=== PATIENT | male | born 1965 | race Caucasian/White ===

== ENCOUNTER 2024-08-15 09:27 | Outpatient (AMB) | payer OTHER, SELFPAY ==
--- OUTSIDE RECORDS SUMMARY | 2024-08-13 08:00 | XMS_ITS | Encounter Summary ---
Author Organization [facility] Address [address] [place] [address] Care Team Providers Care Sales Officer Name Role Phone Lenore Gordillo Primary Care Provider [phone] Reason for Visit * Consultation (Routine) - Authorized Specialty Diagnoses / Procedures Referred By Mathew t Referred To Contact Physical Therapy Diagnoses Acute left-sided low back pain with left-sided sciatica Lise Sorensen, KELLE [address] [place], [place] Phone: tel: fax: [facility] [address] [address] Phone: tel: fax: Referral ID Status Reason Start Date Expiration Date Visits Requested Visits Authorized [id number] Authorized Specialty Services Required 06/26/2024 06/26/2025 60 60 Encounter Details Date Type Department Care Team (Late st Contact Info) Description 08/13/2024 8:00 AM EDT Treatment [place] [facility] [place] [address] [place] [address] Dez Castanon, COKE PRODUCTION HEATER Acute left-sided low back pain with left-sided sciatica (Primary Dx) Social History Tobacco Use Types Packs/Day Years Used Date Smoking Tobacco: Never Smokeless Tobacco: Never Alcohol Use Standard Drinks/Week Comments Not Currently 0 (1 standard drink = 0.6 oz pur e alcohol) Housing Instability Answer Date Recorde d Are you worried that in the next 2 months you may not have stable housing? No 05/17/2024 Food Access & Nutrition Answer Date Rec orded Do you have access to a vari ety of food including fruits and vegetables? Yes 05/17/2024 Access to Healthcare Answer Date Record ed Within the last 3 months, ho w many times did you visit the emergency department for your medical care? 0 05/17/2024 Health Literacy Answer Date Recorded How often do you need to hav e someone help you when you read instructions, pamphlets, or other written material from your doctor or pharmacy? Never 05/17/2024 Caregiver: How often do you need to have someone help you when you read instructions, pamphlets, or other written material from your doctor or pharmacy? Not on file 05/17/2024 Financial Risk Answer Date Recorded How hard is it for you to pa y for the very basics like food, housing, medical care, and air conditioning / heating? Somewhat hard 05/17/2024 Transportation Answer Date Recorded Has the lack of transportati on kept you from meetings, work, or from getting things needed for daily living? No Has the lack of transportati on kept you from medical appointments or from getting medications? No 05/17/2024 Social Isolation Answer Date Recorded How often do you feel lonely or isolated from th ose around you? Rarely 05/17/2024 Food Risk Answer Date Recorded Within the past 12 months we worried whether our food would run out before we got money to buy more. Never true 05/17/2024 Within the past 12 months th e food we bought just didn't last and we didn't have money to get more. Never true 05/17/2024 Dependent Care Answer Date Recorded Do you need help finding or paying for care for your loved ones. For example, child day care provider or elderly care for an older adult? No 05/17/2024 Education Answer Date Recorded Do you think completing more education or training, like finishing a GED, going to college, or learning a trade, would be helpful for you? N/A 05/17/2024 Employment and Income Answer Date Recor ded During the last four weeks, have you been actively looking for work? No 05/17/2024 Living Situation Answer Date Recorded What is your living situation? 0 05/17/2024 Sex and Gender Information Value Date Recorded Sex Assigned at Male 07/31/2024 8:50 AM EDT Legal Sex Male 3:08 PM EDT Gender Identity Male 07/31/2024 8:50 AM EDT Sexual Orientation Straight 07/31/2024 8: 50 AM EDT documented as of this encounter Progress Notes * Dez Castanon PTA - 08/13/2024 8:00 AM EDT [facility] - Outpatient PHYSICAL THERAPY DAILY TREATMENT NOTE - OP Date: 08/13/2024 Visit Number: 3 Patient Name: Chapin Freitas : 1965 Age: 58 y.o. Gender: male Diagnosis: ICD-10-CM ICD-9-CM 1. Acute left-sided low back pain with left-sided sciatica M54.42 724.2 724.3 Date of Onset/Surgery: 07/26/2024 Referring Provider: Lise Sorensen NP Insurance: Payor: [employer] / Plan: [employer] / Product Type: *No Product type* / Patient Identified by: Dez Castanon PTA Language: Citizen Of [place] Medications: Current Outpatient Medications on File Prior to Visit Medication Sig Dispense Refill acetaminophen (TYLENOL) 500 mg tablet TAKE 2 TABLETS BY MOUTH 4 TIMES A DAY X5 DAYS NEEDED FOR PAIN amLODIPine (NORVASC) 2.5 mg tablet Take 1 tablet (2.5 mg total) by mouth 1 (one) time each day. 90 each 3 atorvastatin (LIPITOR) 20 mg tablet TAKE 1 TABLET BY MOUTH EVERY DAY 90 tablet 1 cyclobenzaprine (FLEXERIL) 10 mg tablet TAKE 1 TABLET BY MOUTH 3 TIMES A DAY,X7 DAYS (MAY CAUSE DROWSINESS. DO NOT TAKE IF DRIVING) (Patient not taking: Reported on 08/03/2024) dexAMETHasone (DECADRON) 4 mg tablet Take 1 tablet (4 mg total) by mouth every 8 (eight) hours for 4 days. 12 each 0 fluticasone propionate (FLONASE) 50 mcg/actuation nasal spray Administer 2 sprays into each nostril1 (one) time each day. Shake gently. Before first use, prime pump. After use, clean tip and replacecap. gabapentin (NEURONTIN) 100 mg capsule TAKE 1 CAPSULE BY MOUTH 3 TIMES A DAY,X14 DAYS lamoTRIgine (LaMICtal) 100 mg tablet Take 1 tablet (100 mg total) by mouth 1 (one) time each day. lidocaine (LIDODERM) 5 % patch APPLY 1 PATCH TOPICALLY DAILY X7 DAYS NEEDED FOR PAIN (MILD) REMOVE AFTER 12 HOURS lisinopriL (PRINIVIL,ZESTRIL) 20 mg tablet TAKE 1 TABLET BY MOUTH EVERY DAY 90 tablet 1 loperamide (IMODIUM) 2 mg capsule Take 1 capsule (2 mg total) by mouth 4 (four) times a day if needed for diarrhea. (Patient not taking: Reported on 08/03/2024) meloxicam (MOBIC) 15 mg tablet Take 1 tablet (15 mg total) by mouth 1 (one) time each day. 30 each 2 metoprolol succinate (TOPROL-XL) 100 mg 24 hr tablet TAKE 1 TABLET BY MOUTH EVERY DAY 90 tablet 1 naproxen (NAPROSYN) 500 mg tablet Take 1 tablet (500 mg total) by mouth 2 (two) times a day with meals. omeprazole OTC (PriLOSEC OTC) 20 mg EC tablet Take 1 tablet (20 mg total) by mouth 1 (one) time each day for 10 doses. Do not crush, chew, or split. 10 tablet 0 semaglutide (Wegovy) 1 mg/0.5 mL injection pen Inject 1 mg under the skin every 7 (seven) days. (Patient not taking: Reported on 08/03/2024) 4 mL 0 sertraline (ZOLOFT) 100 mg tablet Take 1 tablet (100 mg total) by mouth 1 (one) time each day. sildenafiL (VIAGRA) 50 mg tablet Take 1 tablet by mouth 30 minutes prior to anticipated sexual activity. tiZANidine (ZANAFLEX) 2 mg tablet TAKE 2 TABS BY MOUTH 3 TIMES A DAY NEEDED FOR SPASM. NOT TO EXCEED 3 DOSES/DAY. (Patient not taking: Reported on 08/03/2024) traMADoL (ULTRAM) 50 mg tablet Take 1 tablet (50 mg total) by mouth 1 (one) time each day if neededfor severe pain. Max Daily Amount: 50 mg 15 tablet 0 [DISCONTINUED] famotidine (PEPCID) 20 mg tablet Take 1 Tablet by mouth 2 times daily as needed for Heartburn. - Oral No current facility-administered medications on file prior to visit. Allergies: has No Known Allergies. Precautions: HTN Fall risk: No SUBJECTIVE Subjective Report:pt reports his hamstring is pretty tight Chart Reviewed: Yes Pain Upper (L) LE OBJECTIVE TREATMENT INTERVENTION: Nu step x 5 min Standing hip flexor and hamstring stretch 2 x 20 sec hold (B) Heel raises x 20 Standing hip ext/abd/marching 2 x 10 each (B) with green tband Bridging 2 x 10 H/L hip add x 20 ball squeeze (L) LE long axis traction x 5 m9n ASSESSMENT/Response to Treatment Good add to HEP next visit Patient Education: Education provided: Yes Education Provided To: Patient utilizing Explanation mode(s) of education Response to Education: Verbal Understanding PLAN POC Development/Review: No Change in the Plan of Care; Participants: Patient Total Treatment Time: 30 Modalities: Therapeutic procedures: Documentation completed by Dez Castanon PTA documented in this encounter Plan of Treatment Upcoming Encounters Date Type Department Care Team (Late st Contact Info) Description 08/16/2024 9:30 AM EDT Treatment [address] [phone] Chriss Simmons, COKE PRODUCTION HEATER 08/20/2024 9:00 AM EDT Treatment [address] [phone] Chriss Simmons, COKE PRODUCTION HEATER 08/22/2024 9:00 AM EDT Treatment [facility] [address] [phone] Dez Castanon PTA 08/27/2024 9:00 AM EDT Treatment [address] [phone] Chriss Simmons, COKE PRODUCTION HEATER 08/29/2024 9:00 AM EDT Treatment [facility] [address] [phone] Nia Thomas, PT 09/03/2024 9:00 AM EDT Treatment [facility] [address] [phone] Nia Thomas, PT 09/13/2024 8:45 AM EDT Office Visit Adult [address] [phone] Marilyn Bishop MD [address] [place] [address] 10/29/2024 2:45 PM EDT Telemedicine Bariatric Surgery [facility] [address] [phone] Ilan Rivas MD [address] [address] 10/30/2024 4:00 PM EDT Office Visit [address] [phone] Lenore Gordillo PA [address] [place] [address] documented as of this encounter Visit Diagnoses Diagnosis Acute left-sided low back pain with left-sided sciatica- Primary documented in this encounter Additional Health Concerns Assessment Noted Time PHQ-9 Depression Total Score: 0 05/18/19 8:24 AM EDT documented as of this encounter Care Teams Sales Officer Relationship Specialty Start Date End Date Lenore Gordillo PA [address] [place] [id number] PCP - General Internal Medicine 07/31/24 documented as of this encounter
--- NOTE | 2024-08-15 09:28 | A.OFFVIS_ITS ---
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 Patient reports he has experienced this pain in the past however current episode started in May after he was hiking and slipped. Did not fall, but tweaked his back attempting to regain his balance and prevent falling. Endorses left lower back pain with some radiation into the buttock and thigh. Initially after the injury when pain was most severe there was radiation down the left leg into the foot. Denies numbness, weakness, tingling of the left lower extremity. Denies red flag symptoms including loss of bowel, bladder or saddle anesthesia. He has attempted physical therapy and chiropractic manipulation with minimal improvement. Has been doing physical therapy for several weeks and is still continuing it but pain persists. He has temporary improvement with steroid Dosepak, nonsteroidal anti- inflammatory medications. No improvement with oxycodone. Previously he was prescribed gabapentin twice and noticed some relief with 200 mg dose. He had a recent MRI at [facility], results reviewed on his patient portal. Medical record record release was signed so these could be obtained for his chart. In terms of muscle damage condition is described as pinching, cramping, crushing, tight, squeezing, tearing. Pain is negatively impacting patient's enjoyment of life, general activity, normal sleep, ability to perform activities of daily living, ability to function normally. Pain today is rated as a 5/10, constant. Denies implantable device, pacemaker or defibrillator Denies current use of nicotine, tobacco, alcohol or substances. Does endorse cannabis use Denies current use of aspirin or anticoagulants [facility] Medical History (Updated 08/15/24 @ 13:06 by Gloria Lopez, AUXILIARY POWER EQUIPMENT OPERATOR, CLEANING ATTENDANT) Osteochondritis dissecans Passage of loose stools COVID-19 Burping Dyspnea Right rotator cuff tendinitis DANISHA (obstructive sleep apnea) Right inguinal hernia Microscopic hematuria Dyslipidemia Elevated fasting glucose Vitamin D deficiency Hyperlipemia Anxiety Depression HTN (hypertension) Syncope Surgical History (Updated 08/15/24 @ 09:51 by Enedelia Hillman MA) Hx of wisdom tooth extraction History of tonsillectomy S/P hernia repair History of colonoscopy Review of Systems Const All systems reviewed & are unremarkable except as noted in HPI and below Physical Exam Vital Signs: Last Vital Signs Pulse 73 08/15/24 09:29 Resp 16 08/15/24 09:29 BP 159/90 H 08/15/24 09:29 Pulse Ox 96 08/15/24 09:29 Oxygen Delivery Method Room Air 08/15/24 09:29 BMI result Body Mass Index 41.5 General: awake, alert, oriented. Answers questions appropriately. Fully engaged in examination. Skin: warm, dry, intact HEENT: Normocephalic. Hearing intact. Cardiac: External chest normal in appearance. Respiratory: No cough, audible wheezing or stridor. Abdomen: without gross distension. MS: No obvious swelling or deformities. Able to stand on bilateral tiptoes and bilateral heels.? Able to transition from sit to stand unassisted. Ambulates with bilaterally normal heel strike and toe off SLR negative bilaterally Minimally tender over midline lumbar vertebrae and lower paraspinal muscles Nontender over bilateral PSIS Bilateral lower extremity strength 5/5 Decreased lumbar range of motion Neurological: Oriented to person, place, time and situation. Thought process intact. No gait abnormalities appreciated. Psychiatric: Appropriate mood and affect. Good judgment and insight. Assessment & Plan Assessment & Plan (1) Degenerative disc disease, lumbar: Code(s): M51.369 - Other intervertebral disc degeneration, lumbar region without mention of lumbar back pain or lower extremity pain Category: Medical (2) Chronic back pain: Code(s): M54.9 - Dorsalgia, unspecified; G89.29 - Other chronic pain Category: Medical (3) Lumbar spondylosis: Code(s): M47.816 - Spondylosis without myelopathy or radiculopathy, lumbar region Category: Medical (4) Bulging lumbar disc: Code(s): M51.369 - Other intervertebral disc degeneration, lumbar region without mention of lumbar back pain or lower extremity pain Category: Medical Plan Chapin is a very pleasant 50-year-old male who presented to the office today for evaluation and management of his chronic lower back pain. MRI was performed at [facility], medical record release signed. Results will be scanned into the chart once available. Will send prescription for gabapentin 300 mg p.o. 3 times daily. Patient was advised on cautions for use. May cause drowsiness, no driving while taking this medication. Do not take with any other TRAFFIC WAREHOUSE SUPERVISOR depressants. Patient has exhausted conservative therapy including PT, NSAIDs, [id number] medications, prescription medications, chiropractor all without improvement of his symptoms. Will schedule for lumbar epidural steroid injection after review of MRI results to confirm level. All questions and concerns answered, patient agrees with plan. Follow-up after injection, sooner if needed Medications: New gabapentin 300 mg PO TID 90 caps 1RF Coding Level of Care Code New Pt Level 4 (00714) Complex EM visit Add On G2211 Diagnoses Degenerative disc disease, lumbar M51.369 Chronic back pain M54.9; G89.29 Lumbar spondylosis M47.816 Bulging lumbar disc M51.369
[2024-08-15 09:29] VITALS: BP 159/90; PULSE 73; RESP 16; O2SAT 96; BMI 41.5
== END 2024-08-15 10:07 | disposition home or self-care (01) ==
LOC: HO.PMC 09:27
PROVIDERS: PCP Internal Medicine; Referring Provider Physician Assistant; Visit Provider Registered Nurse Emergency
DX: M51.369 Other intervertebral disc degeneration, lumbar region without mention of lumbar back pain or lower extremity pain (principal); M54.9 Dorsalgia, unspecified; G89.29 Other chronic pain; M47.816 Spondylosis without myelopathy or radiculopathy, lumbar region
CPT/HCPCS: 99204; G2211

== ENCOUNTER 2024-08-24 14:52 | Outpatient (AMB) | payer OTHER, SELFPAY ==
[2024-08-24 14:58] VITALS: BP 168/88; PULSE 74; RESP 16; O2SAT 98; BMI 41.5
--- NOTE | 2024-08-24 14:58 | A.OFFVIS_ITS ---
Vital Signs 08/24/24 14:58 Height 5 ft 8 in Weight 273 lb BMI 41.5 BP 168/88 H Blood Pressure Location Lt brachial Position Sitting Respiration 16 Pulse 74 Pulse Source Pulse Oximeter Pulse Oximetry (%) 98 Oxygen Delivery Method Room Air Intake Visit Reasons: Follow Up After ED Visit Chemical Lab Technician Required: No Accompanied by: Daughter Allergies No Known Allergies Allergy (Verified 08/24/24 15:04) HPI Comments Details: The patient is a 58-year-old male presenting with acute pain due to disc pathology. The pain began on Tuesday when he found a comfortable position in bed, but upon waking, experienced severe spasms on his side. Gabapentin was ineffective, leading to an ER visit where fentanyl provided short-term relief. On Tuesday, the pain persisted, and by , another ER visit was required, with fentanyl and Percocet providing temporary relief. The patient reports continuous pain since Tuesday, with no comfortable position and difficulty in daily activities. Was discharge from the ER with a short prescription of Percocet 5 mg. States 1 Percocet did not relieve his pain, if he took 2 Percocet he was able to get a couple hours of relief. He does not have any oral pain medication to take until his surgery in 4 days. He is scheduled for minimally invasive day surgery to address the disc issue next Tuesday. Denies red flag symptoms including new loss of bowel, bladder or saddle anesthesia. - Onset: Pain began on Tuesday after waking from a comfortable position. - Quality: Severe spasms on the side. - Location: Side of the body. - Exacerbating factors: Movement and inability to find a comfortable position. - Relieving factors: Fentanyl and Percocet provided temporary relief. - Interference: Difficulty standing, lying down, and using the bathroom. - Affect: Pain is causing significant distress and inability to perform daily activities. - Analgesia: Gabapentin was ineffective; fentanyl and Percocet provided temporary relief. - Adverse Effects: None reported. - Activities of Daily Living: Pain interferes with standing, lying down, and using the bathroom. - Aberrant Drug Related Behaviors: None reported. [facility] Medical History (Updated 08/15/24 @ 13:06 by Gloria Lopez, CUTTING MACHINE TENDER HELPER, EXPERIMENTAL MACHINING LAB MANAGER) Osteochondritis dissecans Passage of loose stools COVID-19 Burping Dyspnea Right rotator cuff tendinitis DANISHA (obstructive sleep apnea) Right inguinal hernia Microscopic hematuria Dyslipidemia Elevated fasting glucose Vitamin D deficiency Hyperlipemia Anxiety Depression HTN (hypertension) Syncope Surgical History (Updated 08/15/24 @ 09:51 by Enedelia Hillman MA) Hx of wisdom tooth extraction History of tonsillectomy S/P hernia repair History of colonoscopy Review of Systems Const Details: - Musculoskeletal: Reports severe spasms and inability to find a comfortable position. - Neurological: Denies any neurological deficits. - Gastrointestinal: Reports difficulty using the bathroom due to pain. Physical Exam Vital Signs: Last Vital Signs Pulse 74 08/24/24 14:58 Resp 16 08/24/24 14:58 BP 168/88 H 08/24/24 14:58 Pulse Ox 98 08/24/24 14:58 Oxygen Delivery Method Room Air 08/24/24 14:58 BMI result Body Mass Index 41.5 Standing up in the room on arrival for the visit. Patient appears uncomfortable. Leaning on the counter, unable to sit for exam due to worsening pain. General: awake, alert, oriented. Answers questions appropriately. Skin: warm, dry, intact HEENT: Normocephalic. Hearing intact. Cardiac: External chest normal in appearance. Respiratory: No cough, audible wheezing or stridor. Abdomen: without gross distension. MS: No obvious swelling or deformities. Neurological: Oriented to person, place, time and situation. Thought process intact. Antalgic gait Psychiatric: Appropriate mood and affect. Good judgment and insight. Assessment & Plan Assessment & Plan (1) Degenerative disc disease, lumbar: Code(s): M51.369 - Other intervertebral disc degeneration, lumbar region without mention of lumbar back pain or lower extremity pain Category: Medical (2) Chronic back pain: Code(s): M54.9 - Dorsalgia, unspecified; G89.29 - Other chronic pain Category: Medical (3) Lumbar spondylosis: Code(s): M47.816 - Spondylosis without myelopathy or radiculopathy, lumbar region Category: Medical (4) Bulging lumbar disc: Code(s): M51.369 - Other intervertebral disc degeneration, lumbar region without mention of lumbar back pain or lower extremity pain Category: Medical Plan The patient is advised to contact the neurosurgeon regarding the worsening pain. Our office focuses on interventional pain management and do not prescribe opioid medications. Given patient's obvious significant discomfort, two recent emergency room visits and pending surgery in 4 days patient was given a very short prescription for oxycodone 10 mg p.o. q.8 hours p.r.n. to manage pain over the weekend until the scheduled surgery on Tuesday. The patient is scheduled for minimally invasive day surgery to address the disc issue, which was recommended after a flare-up and MRI review by the neurosurgeon's partner. Patient was advised that this is a one time prescription to prevent unnecessary suffering over the weekend while he awaits surgery on Tuesday. This medication will not be refilled. He verbalizes understanding. He was advised to contact his neurosurgeon if the pain worsens. Patient was advised of red flag symptoms and when he should seek treatment in the emergency room. Patient was informed and verbally consented to the use of an ambient scribe for clinic note documentation during this visit. Medications: New oxycodone May cause drowsiness. No driving while taking this medication. Do not take with alcohol or other ELECTRONICS INSPECTOR depressants. Partial Fill upon patient request. 10 mg PO Q8H PRN 14 tabs 0RF pain 4 days Patient Instructions: - Contact your neurosurgeon regarding worsening pain. - Take the prescribed oxycodone as directed to manage pain until surgery. - Follow up with the neurosurgeon after surgery for further management. Coding Level of Care Code Est Pt Level 4 (27333) Complex EM visit Add On G2211 Diagnoses Degenerative disc disease, lumbar M51.369 Chronic back pain M54.9; G89.29 Lumbar spondylosis M47.816 Bulging lumbar disc M51.369
== END 2024-08-24 15:19 | disposition home or self-care (01) ==
LOC: HO.PMC 14:53
PROVIDERS: PCP Internal Medicine; Visit Provider Registered Nurse Emergency
DX: M51.369 Other intervertebral disc degeneration, lumbar region without mention of lumbar back pain or lower extremity pain (principal); M54.9 Dorsalgia, unspecified; G89.29 Other chronic pain; M47.816 Spondylosis without myelopathy or radiculopathy, lumbar region
CPT/HCPCS: 99214; G2211